=== PATIENT | female | born 1985 | race African-American/Black ===

== ENCOUNTER 2024-03-31 21:49 | Emergency (ER) | payer OTHER, SELFPAY ==
[2024-03-31 21:52] VITALS: BP 121/76; PULSE 70; RESP 18; TEMP 36.7; O2SAT 100
--- NOTE | 2024-03-31 23:09 | ED.HA ---
HPI - Headache General Chief Complaint: Headache Stated Complaint: headache Time Seen by Provider: 03/31/24 23:02 Source: patient Mode of arrival: ambulatory Limitations: no limitations History of Present Illness HPI Narrative: This is a 30-year-old female with migraine history who presents to the ED with chief complaint of migraine beginning earlier this morning. Patient states that she woke up with the migraine today. It is consistent with her typical pattern. she was prescribed sumatriptan recently for migraine but did not have time to take it today. She did try taking ibuprofen after the onset of the headache but had minimal relief. Denies photophobia, blurred vision, double vision, numbness, weakness, syncope, head injury neck pain. Denies fevers chills or recent illness. Headache is not provoked with exercise and is not position. Related Data Allergies Allergy/AdvReac Type Severity Reaction Status Date / Time promethazine Allergy Verified 03/16/12 13:07 Review of Systems Review of Systems: All systems as dictated in HPI Exam Narrative: GENERAL: Well-appearing, well-nourished, and in no acute distress. HEAD: Normocephalic, atraumatic. EYES: PERRLA and EOMI. ENT: Nares clear, no rhinorrhea or epistaxis. Mucous membranes moist. Oropharynx without tonsillar hypertrophy exudate or other lesions. NECK: Supple. No adenopathy or masses. CHEST: No respiratory distress. Clear to auscultation. No wheezes rales or rhonchi HEART: Regular rate and rhythm. No murmur heard. Normal peripheral pulses. ABDOMEN: Soft, nontender, nondistended, normal active bowel sounds. MSK: Normal range of motion. No edema. SKIN: Warm, dry, no rash. NEURO: Alert and oriented x4. No focal deficits. PSYCH: Normal mood and affect. Course Vital Signs Vital signs: Vital Signs Temperature 98.0 F 03/31/24 21:52 Pulse Rate 70 03/31/24 21:52 Respiratory Rate 18 03/31/24 21:52 Blood Pressure 121/76 03/31/24 21:52 Pulse Oximetry 100 03/31/24 21:52 Oxygen Delivery Room Air 03/31/24 21:52 Temperature 98.0 F 03/31/24 21:52 Pulse Rate 79 03/31/24 23:33 Respiratory Rate 16 03/31/24 23:33 Blood Pressure 112/78 03/31/24 23:33 Pulse Oximetry 100 03/31/24 23:33 Oxygen Delivery Room Air 03/31/24 21:52 MDM - Headache MDM Narrative Medical decision making narrative: this is a 38-year-old female who presents to the ED for a migraine of her typical pattern. Vitals are normal. No red flag signs for headache today. No further laboratory or imaging workup required at this time. Patient was given migraine cocktail with significant relief. She feels ready to go home. encouraged her to use ibuprofen and sumatriptan if she has a new onset of headache. Pt will be discharged in stable condition. Return precautions given and supportive measures discussed. Pt is understanding and agreeable with plan for discharge and follow-up with PCP. Discharge Plan Discharge Clinical Impression: Migraine Patient Disposition: Home, Self-Care Condition: Stable Instructions: Antibiotic Form Additional Instructions: your evaluated today for migraine headache. Please take your abortive migraine headache medicine sumatriptan as soon as you feel another headache,. You could also take ibuprofen for headaches. Follow-up with your PCP. If you have any new or worsening symptoms please return to the ER for further evaluation. Follow-up/Referrals: PHYSICIAN NOT ON STAFF,NONSTAFF [Non-Staff] - Time of Disposition: :22
[2024-03-31 23:33] VITALS: BP 112/78; PULSE 79; RESP 16; O2SAT 100
[2024-03-31] MEDS: METOCLOPRAMIDE HCL INJ 10 MG/2 ML VIAL IV PUSH (23:39)
[2024-03-31] MEDS: KETOROLAC 15 MG/ML VIAL (*BKC) IV PUSH (23:39)
[2024-03-31] MEDS: diphenhydrAMINE HCl INJ 50 MG/ML VIAL 25 MG IV PUSH (23:39)
[2024-03-31] MEDS: SODIUM CHLORIDE 0.9% IV 1,000 ML 999 ML IV CONT (23:40)
[2024-04-01 02:25] VITALS: BP 114/60; PULSE 76; RESP 15; O2SAT 100
== END 2024-04-01 02:26 | disposition home or self-care (01) ==
PROVIDERS: Emergency Provider Physician Assistant
DX: G43.909 Migraine, unspecified, not intractable, without status migrainosus (principal)
CPT/HCPCS: 96361; 96374; 96375; 99284; J1200; J1885; J2765; J7030